=== PATIENT | male | born 1985 | race Caucasian/White ===

== ENCOUNTER 2024-02-15 09:58 | Outpatient (CLI) | payer OTHER, SELFPAY ==
[2024-02-15 10:49] LABS: Basophils Absolute Auto 0.1 K/mm3 (0.0-0.1); Basophils Percent Auto 1.6 % (0.2-1.2); Eosinophils Absolute Auto 0.2 K/mm3 (0-0.3); Eosinophils Percent Auto 3.3 % (0-4.4); Hematocrit 45.3 % (42.0-52.0); Immature Granulocyte Absolute 0.02 K/mm3 (0.00-0.031); Immature Granulocyte Percent A 0.4 % (0-0.5); Lymphocytes Absolute Auto 2.18 K/mm3 (0.9-3.2); Lymphocytes Percent Auto 44.4 % (18.3-44.2); Mean Corpuscular HGB Conc 33.1 g/dl (32-36); Mean Corpuscular Hemoglobin 32.3 pg (26-34); Mean Corpuscular Volume 97.4 fl (80-100); Mean Platelet Volume 11.2 fl (7.4-10.4); Monocytes Absolute Auto 0.4 K/mm3 (0.1-0.6); Monocytes Percent Auto 8.6 % (2.6-8.5); Neutrophils Absolute Auto 2.1 K/mm3 (1.3-6.7); Neutrophils Percent Auto 41.7 % (45.5-73.1); Platelet Count Result 281 k/mm3 (150-375); Red Blood Count 4.65 M/mm3 (4.6-6.20); Red Cell Distribution Width 11.9 % (11.5-14.5); White Blood Count 4.9 K/mm3 (4.5-10.0)
[2024-02-15 11:16] LABS: LDL Cholesterol Direct 174 mg/dL
[2024-02-15 12:15] LABS: Alanine Aminotransferase 179 U/L (6-50); Albumin Level 4.4 g/dL (3.5-5.1); Alkaline Phosphatase 41 U/L (38-126); Anion Gap 8 mmol/L (4-12); Aspartate Amino Transferase 342 U/L (17-59); Bilirubin,Total 0.6 mg/dL (0.2-1.3); Blood Urea Nitrogen 15 mg/dL (9-20); Calcium 8.9 mg/dL (8.4-10.2); Carbon Dioxide 27 mmol/L (22-30); Chloride 103 mmol/L (98-107); Cholesterol 247 mg/dL (0-200); Estimated Glomerular Filt Rate > 60; Glucose 101 mg/dL (65-110); HDL Direct 42 mg/dL; Potassium 4.8 mmol/L (3.4-5.0); Sodium 138 mmol/L (137-145); Triglycerides 80 mg/dL (<150)
== END 2024-02-15 09:59 | disposition home or self-care (01) ==
PROVIDERS: PCP Family Medicine; Visit Provider Physician Assistant
DX: Z00.00 Encounter for general adult medical examination without abnormal findings (principal); F90.9 Attention-deficit hyperactivity disorder, unspecified type; R19.7 Diarrhea, unspecified
CPT/HCPCS: 36415; 80053; 80061; 84443; 85025

== ENCOUNTER 2024-02-17 08:56 | Outpatient (CLI) | payer OTHER, SELFPAY ==
[2024-02-17 09:27] LABS: Appearance Urine Clear (Clear); Bilirubin Urine Negative (Negative); Blood Urine Negative (Negative); Color Urine Yellow (Yellow); Glucose Urine UA Negative (Negative); Ketones Urine Negative (Negative); Nitrate Urine Negative (Negative); Protein Urine Negative (Negative); Specific Grav Ur 1.019 (1.001-1.035)
[2024-02-17 09:28] LABS: Add Urine Microscopic? NO; Leukocyte Esterase Ur Negative LEU/UL (Negative); Urobilinogen Urine 0.2 mg/dL (<2.0)
[2024-02-17 10:55] LABS: Alanine Aminotransferase 147 U/L (6-50); Albumin Level 4.4 g/dL (3.5-5.1); Alkaline Phosphatase 56 U/L (38-126); Aspartate Amino Transferase 124 U/L (17-59); Bilirubin,Total 0.6 mg/dL (0.2-1.3)
== END 2024-02-17 08:57 | disposition home or self-care (01) ==
PROVIDERS: PCP Family Medicine; Visit Provider Physician Assistant
DX: R79.89 Other specified abnormal findings of blood chemistry (principal); F90.9 Attention-deficit hyperactivity disorder, unspecified type; R19.7 Diarrhea, unspecified
CPT/HCPCS: 36415; 80076; 81003

== ENCOUNTER 2024-03-08 10:58 | Outpatient (CLI) | payer OTHER, SELFPAY ==
[2024-03-08 11:24] LABS: Alanine Aminotransferase 33 U/L (6-50); Albumin Level 4.4 g/dL (3.5-5.1); Alkaline Phosphatase 48 U/L (38-126); Anion Gap 10 mmol/L (4-12); Aspartate Amino Transferase 28 U/L (17-59); Bilirubin,Total 0.5 mg/dL (0.2-1.3); Blood Urea Nitrogen 16 mg/dL (9-20); Calcium 8.7 mg/dL (8.4-10.2); Carbon Dioxide 28 mmol/L (22-30); Chloride 99 mmol/L (98-107); Estimated Glomerular Filt Rate > 60; Glucose 100 mg/dL (65-110); Potassium 4.4 mmol/L (3.4-5.0); Sodium 137 mmol/L (137-145)
== END 2024-03-08 10:59 | disposition home or self-care (01) ==
LOC: ANHLAB 10:59
PROVIDERS: PCP Family Medicine; Visit Provider Physician Assistant
DX: R79.89 Other specified abnormal findings of blood chemistry (principal)
CPT/HCPCS: 36415; 80053

== ENCOUNTER 2024-09-01 08:42 | Outpatient (CLI) | payer OTHER, SELFPAY ==
[2024-09-01 09:17] LABS: Alanine Aminotransferase 46 U/L (6-50); Albumin Level 4.6 g/dL (3.5-5.1); Alkaline Phosphatase 58 U/L (38-126); Anion Gap 10 mmol/L (4-12); Aspartate Amino Transferase 29 U/L (17-59); Bilirubin,Total 0.6 mg/dL (0.2-1.3); Blood Urea Nitrogen 20 mg/dL (9-20); Calcium 9.7 mg/dL (8.4-10.2); Carbon Dioxide 28 mmol/L (22-30); Chloride 104 mmol/L (98-107); Cholesterol 289 mg/dL (0-200); Estimated Glomerular Filt Rate > 60; Glucose 101 mg/dL (65-110); HDL Direct 46 mg/dL; Potassium 4.5 mmol/L (3.4-5.0); Sodium 142 mmol/L (137-145); Triglycerides 142 mg/dL (<150)
[2024-09-01 09:29] LABS: LDL Cholesterol Direct 184 mg/dL
== END 2024-09-01 08:43 | disposition home or self-care (01) ==
LOC: ANHLAB 08:43
PROVIDERS: PCP Family Medicine; Visit Provider Physician Assistant
DX: E78.5 Hyperlipidemia, unspecified (principal); R03.0 Elevated blood-pressure reading, without diagnosis of hypertension; R79.89 Other specified abnormal findings of blood chemistry
CPT/HCPCS: 36415; 80053; 80061

== ENCOUNTER 2025-01-17 17:08 | Emergency (ER) | payer OTHER, SELFPAY ==
--- NOTE | 2025-01-17 17:13 | ECG_ITS ---
Test Date: 2025-01-17 17:24:22 Measurements Intervals [place] Rate: 93 P: 57 UT: 162 QRS: 55 QRSD: 106 T: 67 QT: 326 QTc: 406 Interpretive Statements SINUS RHYTHM INCOMPLETE RIGHT BUNDLE BRANCH BLOCK Electronically Signed On 01-17-2025 23:30:00 CDT by Montrell Garza D.O
[2025-01-17 17:26] VITALS: BP 142/92; PULSE 105; RESP 16; TEMP 36.5; O2SAT 98
--- NOTE | 2025-01-17 17:34 | ED_ITS ---
HPI - Chest Pain General Chief Complaint: Chest Pain Stated Complaint: CHEST/ARMS TINGLING Time Seen by Provider: 01/17/25 17:20 Source: patient and RN notes reviewed Mode of arrival: ambulatory Limitations: no limitations History of Present Illness HPI narrative: 39-year-old male presents [facility] Care complaining of chest pain for approximally 3 hours. He says it started while he was sitting at his computer doing work. Patient said he recently started losartan and has been taking it for approximately 5 days now. Patient has had no other episodes of this chest pain. Patient denies anything making the chest pain worse and denies anything making the chest pain better. Patient describes the pain as a burning sensation throughout his chest going into his bilateral arms. Patient says the pain has been constant for the last 3 hours is not gotten any better. Patient denies any indigestion, belching, heartburn or any acid reflux symptoms. Patient denies any chest pain that is worse with exertion, chest pressure, nausea, vomiting, diaphoresis, jaw pain, or any other symptoms. Patient has a history of hypertension and hyperlipidemia. Patient takes losartan for hypertension and takes rosuvastatin for hyperlipidemia. Patient is adopted and does not know if he has family history of heart disease but states he does not have any known heart disease. Patient is a nonsmoker. Patient appears anxious in the room. Related Data Allergies Allergy/AdvReac Type Severity Reaction Status Date / Time Sulfa (Sulfonamide Allergy Unknown Siezure Verified 01/17/25 17:59 Antibiotics) Penicillins Allergy Unknown Verified 01/17/25 17:59 Review of Systems Review of Systems: CONSTITUTIONAL: Denies fever, body aches chills, or sweats. EYES: Denies visual changes, redness, or discharge. ENT: Denies rhinorrhea, congestion, sore throat, or otalgia. CARDIOVASCULAR: Positive for chest pain and bilateral arm pain. Negative for dizziness, chest pain with exertion, chest pressure, jaw pain, lightheadedness, palpitations, or edema. RESPIRATORY: Denies cough, wheezing, difficulty breathing, or dyspnea. GASTROINTESTINAL: Denies abdominal pain, nausea, vomiting, or diarrhea. GENITOURINARY: Denies dysuria or hematuria. SKIN: Denies rash or itching. MUSCULOSKELETAL: Denies back pain, joint pain, or myalgia. NEUROLOGIC: Denies headache, numbness, or weakness. PSYCHIATRIC: Denies anxiety or depression. All other systems reviewed are negative, except as documented in HPI. PMFSH Family History Family History Father Hypertension Social History Social History Social History: Single Smoking status: Never smoker Second hand tobacco smoke exposure: No Alcohol intake: never Substance use: never Substance use type: does not use Do You Feel Safe in your Home?: Yes Lack of Transportation: No Lack of Food: Never True Current Housing: I Have Housing Concerned About Future Housing: No Difficulty Paying Gas/Electric Bills: No Difficulty Paying for Meds: No Currently Unemployed: No Education: Don't Know Difficulty w/ Childcare or Family Care: No Living arrangements: with roommate(s) Occupation/Education: occupation Gender identity (if verbalized by the patient): Male Sexual Orientation (if Verbalized by the Patient): Straight or Heterosexual Spiritual care concerns: No Comments At the time of my signature, I reviewed and agree with the nursing past medical, surgical, social, and family history. There is no relevant family history pertinent to the patient complaint. Exam Narrative: GENERAL: This is a well-nourished, well-developed adult, in no apparent distress. They are non ill-appearing, nontoxic appearing. No diaphoresis. Patient appears anxious. HEAD: normocephalic, atraumatic. EYES: Sclera clear/white. Conjunctiva normal. Vision is grossly intact. Extraocular movements intact EARS: External ears normal, Hearing grossly intact. NOSE: External nose normal THROAT: Mucous membranes moist, NECK: Neck supple, CARDIOVASCULAR: Regular rate and rhythm without murmurs, gallops, or rubs. CHESTWALL: No flail chest segment, no paradoxical movements, no tenderness to palpation, no accessory muscle use, no retractions. RESPIRATORY: Clear to auscultation. Breath sounds equal bilaterally. No wheezes, rales, or rhonchi. Respiratory rate normal, respiratory effort nonlabored, no respiratory distress SKIN: warm, Dry, intact with no suspicious lesions or rash, good texture and turgor. NEURO: awake, alert, and oriented to person, place and time. There were no obvious focal neurologic abnormalities. EXTREMITIES: No joint tenderness, effusion, or edema noted. Course Course Emergency Course: Portions of this record may have been created with voice recognition software Level of Care: Express Care Visit Vital Signs Vital signs: Vital Signs Temperature 97.7 F 01/17/25 17:26 Pulse Rate 105 H 01/17/25 17:26 Respiratory Rate 16 01/17/25 17:26 Blood Pressure 142/92 H 01/17/25 17:26 Pulse Oximetry 98 01/17/25 17:26 Temperature 97.7 F 01/17/25 17:26 Pulse Rate 105 H 01/17/25 17:26 Respiratory Rate 16 01/17/25 17:26 Blood Pressure 142/92 H 01/17/25 17:26 Pulse Oximetry 98 01/17/25 17:26 Reviewed MDM - Chest Pain MDM Narrative Medical decision making narrative: EKG sinus rhythm with no ischemic findings, no ST elevation or depression. EKG shows possible incomplete right bundle branch block. Chest pain appears atypical in presentation describing as a burning sensation throughout his chest into his arms. [place] heartscore of 2. Patient does have risk factors include hypertension and hyperlipidemia. Patient has no known heart disease, nonsmoker, no diabetes. Chest pain is not reproducible. Offered patient ER transfer for further evaluation of his chest pain and he would like to go to [facility]. Patient would like to go to the ER for peace of mind have further evaluation and management of his symptoms. Patient nontoxic appearing, no apparent distress. Called over to [facility] and spoke with Dr. Phillip who is aware this patient has accepted the patient for transfer. Offered EMS for patient and he states his mother will take him via POV. Patient is stable for transfer. Patient advised to remain NPO and proceed immediately to the ER. Differential Diagnosis Differential diagnosis: Likely stable angina, unstable angina pectoris, atypical chest pain, chest pain and other (ACS, heartburn, acid reflux) ECG Data EKG #1: Attestation: I personally reviewed and interpreted this ECG as follows: ECG completion date: 01/17/25 ECG completion time: 17:24 Prior ECG tracings: not available for review EKG Interpretation: normal rate, sinus rhythm, no ectopy, no ST changes, normal QRS, normal QT, NL axis and other (incomplete right bundle branch block) Critical Care Time Critical Care Time Critical Care Time: No Discharge Plan Discharge Clinical Impression: Chest pain Qualifiers: Chest pain type: unspecified Qualified Code(s): R07.9 - Chest pain, unspecified Patient Disposition: Acute Care Hospital Condition: Stable Patient Language: Colombian Prescriptions: No Action dextroamphetamine-amphetamine [Adderall XR] 10 mg capsule,extended release 24hr 10 mg PO QAM Qty: 30 0RF rosuvastatin 5 mg tablet 5 mg PO DAILY Qty: 90 0RF losartan 25 mg tablet 25 mg PO DAILY Qty: 30 0RF Follow-up/Referrals: Darvin Bowen MD [Primary Care Provider] - Time of Disposition: 17:34
== END 2025-01-17 17:38 | disposition short-term general hospital (02) ==
PROVIDERS: PCP Family Medicine
DX: R07.9 Chest pain, unspecified (principal); I10 Essential (primary) hypertension; E78.5 Hyperlipidemia, unspecified
CPT/HCPCS: 93005; 99213; G0463

== ENCOUNTER 2025-01-17 17:57 | Emergency (ER) | payer OTHER, SELFPAY ==
--- NOTE | ~2025-01-17 | XR_ITS ---
EXAMINATION: XR chest 2V Exam Date/Time: 01/17/2025 18:24 CDT HISTORY: CP Comparison: 01/17/2025. RESULT: Lines, tubes, and devices: None. Lungs and pleura: Low volumes with crowding. No focal consolidation, pleural effusion, or pneumothor ax. Cardiomediastinal silhouette: Stable. Other: No acute osseous or upper abdominal finding. IMPRESSION: No acute cardiopulmonary process. Reviewed, dictated and finalized at location K.
--- NOTE | 2025-01-17 18:06 | ECG_ITS ---
Test Date: 2025-01-17 18:20:59 Measurements Intervals [place] Rate: 89 P: 52 AR: 164 QRS: 55 QRSD: 94 T: 66 QT: 331 QTc: 404 Interpretive Statements SINUS RHYTHM INCOMPLETE RIGHT BUNDLE BRANCH BLOCK Electronically Signed On 01-17-2025 23:31:23 CDT by Montrell Garza D.O
[2025-01-17 18:21] VITALS: BP 137/92; PULSE 89; RESP 16; TEMP 36.9; O2SAT 98
[2025-01-17 22:42] LABS: Hematocrit 45.2 % (42.0-52.0); Hemoglobin 15.2 g/dL (14.0-18.0); Immature Granulocyte Percent A 0.3 % (0-0.5); Lymphocytes Absolute Auto 3.00 K/mm3 (0.9-3.2); Mean Corpuscular HGB Conc 33.6 g/dl (32-36); Mean Corpuscular Hemoglobin 32.1 pg (26-34); Mean Corpuscular Volume 95.4 fl (80-100); Nucleated Red Blood Cells Absolute Auto 0.000 K/mm3 (0.0-0.012); Nucleated Red Blood Cells Perc 0.0 % (0.0-0.2); Platelet Count Result 294 k/mm3 (150-375); Red Blood Count 4.74 M/mm3 (4.6-6.20); White Blood Count 8.0 K/mm3 (4.5-10.0)
[2025-01-17 23:04] LABS: INR 1.0; Prothrombin Time 13.8 Seconds (11.1-14.7)
[2025-01-17 23:05] LABS: Partial Thromboplastin Time 30.4 Seconds (22.3-36.8)
[2025-01-17 23:16] LABS: Alanine Aminotransferase 45 U/L (6-50); Albumin Level 4.8 g/dL (3.5-5.1); Alkaline Phosphatase 48 U/L (38-126); Anion Gap 10 mmol/L (4-12); Aspartate Amino Transferase 34 U/L (17-59); Bilirubin,Total 0.5 mg/dL (0.2-1.3); Blood Urea Nitrogen 19 mg/dL (9-20); Calcium 9.6 mg/dL (8.4-10.2); Carbon Dioxide 26 mmol/L (22-30); Chloride 103 mmol/L (98-107); Estimated CRCL calculation 98 ml/min; Estimated Glomerular Filt Rate > 60; Glucose 90 mg/dL (65-110); Lipase 100 U/L (23-300); Potassium 4.2 mmol/L (3.4-5.0); Sodium 139 mmol/L (137-145); Total Protein 7.7 g/dL (6.3-8.2)
[2025-01-17 23:24] LABS: Creatine Kinase 89 U/L (55-170)
--- NOTE | 2025-01-17 23:25 | ED_ITS ---
HPI - Chest Pain General Chief Complaint: Extremity Problem,Nontraumatic Stated Complaint: BILATERAL ARM TINGLING Time Seen by Provider: 01/17/25 22:07 History of Present Illness HPI narrative: 39-year-old male with a past medical history including hypertension previously on hydrochlorothiazide and now recently switched to losartan over last few days. Patient also has a history of hyperlipidemia on rosuvastatin. He presents to the emergency department today with paresthesias in bilateral arms and chest pain. He states this started suddenly at 2:00 p.m. while he was sitting at home and progressively got better and now asymptomatic but he went to urgent care and described his symptoms and chest pain and he was transferred to the emergency department to rule out cardiac causes. Patient has no history of cardiac disease to his knowledge, blood pressure has been controlled on his blood pressure medicines at home. No recent exertional stressors or heat exposure, no trauma or injury, the paresthesias were bilateral and he described as feeling like he worked out too hard and felt pain and tingling in both arms at the shoulders and into the chest. No pain in the back, abdominal pain, fever, chills, weakness or neurological deficits. Symptoms have since resolved. Symmetric and bilateral symptoms without any neck pain or headache. No other recent medication changes other than losartan. Related Data Allergies Allergy/AdvReac Type Severity Reaction Status Date / Time Sulfa (Sulfonamide Allergy Unknown Siezure Verified 01/17/25 17:59 Antibiotics) Penicillins Allergy Unknown Verified 01/17/25 17:59 Review of Systems 2 Review of Systems: As reviewed above in HPI [facility] Family History Family History Father Hypertension Social History Social History Social History: Single Smoking status: Never smoker Second hand tobacco smoke exposure: No Alcohol intake: never Substance use: never Substance use type: does not use Do You Feel Safe in your Home?: Yes Lack of Transportation: No Lack of Food: Never True Current Housing: I Have Housing Concerned About Future Housing: No Difficulty Paying Gas/Electric Bills: No Difficulty Paying for Meds: No Currently Unemployed: No Education: Don't Know Difficulty w/ Childcare or Family Care: No Living arrangements: with roommate(s) Occupation/Education: occupation Gender identity (if verbalized by the patient): Male Sexual Orientation (if Verbalized by the Patient): Straight or Heterosexual Spiritual care concerns: No Exam 2 Narrative: GENERAL: [Well-appearing, well-nourished, and in no acute distress.] HEAD: [Normocephalic, atraumatic.] EYES: [PERRLA and EOMI.] ENT: Nares clear, no rhinorrhea or epistaxis. Mucous membranes moist. NECK: Supple. CHEST: [Clear to auscultation. No respiratory distress.] HEART: [Regular rate and rhythm]. No murmur heard. [Normal peripheral pulses.] ABDOMEN: [Soft, nondistended], [nontender], [No rigidity or guarding] EXTREMITIES: Normal range of motion. [No edema.] SKIN: Warm, dry, no rash. NEURO: [No focal deficits]. Alert and oriented [x3.] PSYCH: [Normal mood and affect.] Course Vital Signs Vital signs: Vital Signs Temperature 36.9 C 01/17/25 18:21 Pulse Rate 89 01/17/25 18:21 Respiratory Rate 16 01/17/25 18:21 Blood Pressure 137/92 H 01/17/25 18:21 Pulse Oximetry 98 01/17/25 18:21 Temperature 36.9 C 01/17/25 18:21 Pulse Rate 89 01/17/25 18:21 Respiratory Rate 16 01/17/25 18:21 Blood Pressure 137/92 H 01/17/25 18:21 Pulse Oximetry 98 01/17/25 18:21 MDM - Chest Pain MDM Narrative Medical decision making narrative: 39-year-old male with a past medical history including hypertension previously on hydrochlorothiazide and now recently switched to losartan over last few days. Patient also has a history of hyperlipidemia on rosuvastatin. He presents to the emergency department today with paresthesias in bilateral arms and chest pain. He states this started suddenly at 2:00 p.m. while he was sitting at home and progressively got better and now asymptomatic but he went to urgent care and described his symptoms and chest pain and he was transferred to the emergency department to rule out cardiac causes. Patient has no history of cardiac disease to his knowledge, blood pressure has been controlled on his blood pressure medicines at home. No recent exertional stressors or heat exposure, no trauma or injury, the paresthesias were bilateral and he described as feeling like he worked out too hard and felt pain and tingling in both arms at the shoulders and into the chest. No pain in the back, abdominal pain, fever, chills, weakness or neurological deficits. Symptoms have since resolved. Symmetric and bilateral symptoms without any neck pain or headache. No other recent medication changes other than losartan. Patient is not any acute distress and has normal vital signs without any tachycardia, tachypnea, fever, hypoxia or significant blood pressure concerns. Blood pressure 137/92. Strong symmetric pulses, no neurological findings on examination at this time. Discussed with him possibility of some causes such as electrolyte abnormalities are potassium derangements from the losartan from hydrochlorothiazide switch, heat exhaustion or dehydration, rhabdomyolysis, low suspicion ACS or cardiopulmonary process. Workup underway including troponin, EKG, chest x-ray, CBC, CMP and a CPK level. Patient is presently asymptomatic which is reassuring. No leukocytosis or anemia. Normal platelet count. Normal coagulation panel, no electrolyte abnormalities, normal creatinine, normal glucose, normal LFTs. Negative troponin, normal lipase. CPK negative. Chest x-ray with no acute cardiopulmonary disease. EKG was sinus rhythm. No signs of acute ischemic evidence. Patient remains asymptomatic with normal vital signs and can safely be discharged with outpatient follow-up and return precautions. Medical Records Data Attestation: I reviewed the patient's medical records. Lab Data Attestation: I reviewed the patient's lab results. 01/17/25 22:33 01/17/25 22:33 Labs: Lab Results 01/17/25 01/17/25 Range/Units 22:33 22:33 WBC 8.0 (4.5-10.0) K/mm3 RBC 4.74 (4.6-6.20) M/mm3 Hgb 15.2 (14.0-18.0) g/dL Hct 45.2 (42.0-52.0) % MCV 95.4 (80-100) fl MCH 32.1 (26-34) pg MCHC 33.6 (32-36) g/dl RDW 11.9 (11.5-14.5) % Plt Count 294 (150-375) k/mm3 MPV 10.4 (7.4-10.4) fl Immature Gran % (Auto) 0.3 (0-0.5) % Neut % (Auto) 49.6 (45.5-73.1) % Lymph % (Auto) 37.7 (18.3-44.2) % [place] % (Auto) 8.8 H (2.6-8.5) % Eos % (Auto) 2.6 (0-4.4) % Baso % (Auto) 1.0 (0.2-1.2) % Lymph # (Auto) 3.00 (0.9-3.2) K/mm3 [place] # (Auto) 0.7 H (0.1-0.6) K/mm3 Eos # (Auto) 0.2 (0-0.3) K/mm3 Baso # (Auto) 0.1 (0.0-0.1) K/mm3 Abs Immat Gran (auto) 0.02 (0.00-0.031) K/mm3 Absolute Neuts (auto) 4.0 (1.3-6.7) K/mm3 Absolute Nucleated RBC 0.000 (0.0-0.012) K/mm3 Nucleated RBC % 0.0 (0.0-0.2) % PT 13.8 (11.1-14.7) Seconds INR 1.0 APTT 30.4 (22.3-36.8) Seconds Sodium 139 (137-145) mmol/L Potassium 4.2 (3.4-5.0) mmol/L Chloride 103 (98-107) mmol/L Carbon Dioxide 26 (22-30) mmol/L Anion Gap 10 (4-12) mmol/L BUN 19 (9-20) mg/dL Creatinine 0.96 (0.7-1.3) mg/dL Estim Creat Clear Calc 98 ml/min Estimated GFR > 60 (59 - ) Glucose 90 (65-110) mg/dL Calcium 9.6 (8.4-10.2) mg/dL Total Bilirubin 0.5 (0.2-1.3) mg/dL AST 34 (17-59) U/L ALT 45 (6-50) U/L Alkaline Phosphatase 48 (38-126) U/L Total Creatine Kinase 89 Cancelled (55-170) U/L Troponin I < 0.012 (0.000-0.034) ng/mL Total Protein 7.7 (6.3-8.2) g/dL Albumin 4.8 (3.5-5.1) g/dL Lipase 100 (23-300) U/L Imaging Data Attestation: I personally reviewed and interpreted this imaging study as follows: My impression: Impressions Chest X-Ray 01/17/25 18:35 IMPRESSION: No acute cardiopulmonary process. Discharge Plan Discharge Clinical Impression: Chest pain, Paresthesia and pain of both upper extremities Patient Disposition: Home Condition: Stable Instructions: Antibiotic Form Additional Instructions: Your laboratory studies, imaging, EKGs are all very reassuring here without any acute findings or concerns such as electrolyte abnormalities or cardiac dysfunction. No signs of infection or inflammation. Unclear the source or cause of your symptoms but no urgent or emergent concerns were identified today and you can safely follow up with regular doctor. The recent medication changes could have something to do with this and cause some transient electrolyte shifts that can cause similar symptoms but no need for any electrolyte replacement or adjustment here and we recommend you call your regular doctor for close follow- up. Return with any emergent concerns. Patient Language: Armenian Prescriptions: No Action dextroamphetamine-amphetamine [Adderall XR] 10 mg capsule,extended release 24hr 10 mg PO QAM Qty: 30 0RF rosuvastatin 5 mg tablet 5 mg PO DAILY Qty: 90 0RF losartan 25 mg tablet 25 mg PO DAILY Qty: 30 0RF Follow-up/Referrals: Darvin Bowen MD [Primary Care Provider] - Time of Disposition: 00:48
[2025-01-17 23:26] LABS: Troponin I < 0.012 ng/mL (0.000-0.034)
== END 2025-01-18 01:10 | disposition home or self-care (01) ==
PROVIDERS: Emergency Provider Student in an Organized Health Care Education/Training Program; PCP Family Medicine
DX: R07.9 Chest pain, unspecified (principal); R20.2 Paresthesia of skin; I10 Essential (primary) hypertension; E78.5 Hyperlipidemia, unspecified
CPT/HCPCS: 36415; 71046; 80053; 82550; 83690; 84484; 85025; 85610; 85730; 93005; 99284